=== PATIENT | male | born 1975 | race Hispanic/Latino ===

== ENCOUNTER 2017-08-06 15:20 | Inpatient (IN) | payer SELFPAY ==
[~2017-08-06] VITALS: Ht 170.2 cm; Wt 93.3 kg
[2017-08-06 16:01] LABS: APPEARANCE,URINE Clear (CLEAR); BILIRUBIN,URINE Negative (NEGATIVE); COLOR,URINE Yellow (YELLOW); GLUCOSE, URINE (UA) >=1000 mg/dL (NEGATIVE); KETONES,URINE >=160 mg/dL (NEGATIVE); LEUKOCYTE ESTERASE ,URINE Negative (NEGATIVE); NITRATE,URINE Negative (NEGATIVE); OCCULT BLOOD,URINE Nonhemolyzed Trace (NEGATIVE); PH,URINE 5.5 (5.0-8.0); PROTEIN,URINE Negative (NEGATIVE)
[2017-08-06 16:16] LABS: BASOPHILS % (AUTO) 0.6 % (0.0-5.0); EOSINOPHILS % (AUTO) 0.4 % (0.0-8.0); HEMATOCRIT 41.8 % (42-54); LYMPHOCYTES % (AUTO) 6.9 % (21.0-51.0); MEAN CORPUSCULAR HEMOGLOBIN 29.1 pg (27.0-33.0); MEAN CORPUSCULAR HGB CONC 34.3 g/dL (32.0-36.0); MONOCYTES % (AUTO) 6.3 % (3.0-13.0); NEUTROPHILS % (AUTO) 85.8 % (40.0-77.0); PLATELET COUNT (AUTO) 287 K/uL (130-400); RED BLOOD CELL COUNT(AUTO) 4.92 MIL/uL (4.50-6.20); RED CELL DISTRIBUTION WIDTH 12.4 % (11.0-15.5); WHITE BLOOD COUNT (AUTO) 20.4 K/uL (4.8-10.8)
[2017-08-06 16:25] LABS: CREATININE 0.8 mg/dL (0.5-1.5); POTASSIUM 3.2 mmol/L (3.5-5.1)
[2017-08-06 16:30] LABS: ALBUMIN 2.8 g/dL (3.5-5.0); BILIRUBIN,TOTAL 0.9 mg/dL (0.2-1.0); TOTAL PROTEIN, SERUM 7.7 g/dL (6.0-8.3)
[2017-08-06 17:00] LABS: BACTERIA,URINE Rare /HPF (None Seen); WBC,URINE 0-1 /HPF (0-1)
[2017-08-06 17:01] LABS: SQUAMOUS EPITHELIAL CELL,UR Rare /LPF (0-2); YEAST,URINE BUDDING Rare /HPF (None Seen)
[2017-08-06] MEDS ORDERED: VANCOMYCIN 1GM+NS 250ML 250 ML IV ONE (17:24)
[2017-08-06] MEDS ORDERED: ONDANSETRON HCL 4 MG/2 ML VIAL ONE (17:24)
[2017-08-06] MEDS ORDERED: SODIUM CHLORIDE 0.9% 1000ML 4,000 ML IV ONE (17:24)
[2017-08-06] MEDS ORDERED: INSULIN HUMULIN R 100 UNIT/ML 3ML ONE (17:25)
[2017-08-06] MEDS ORDERED: ACETAMINOPHEN 325 MG TAB ONE ×2 (17:41→23:51)
[2017-08-06] MEDS ORDERED: SODIUM CHLORIDE 0.9% 1000ML 1,000 ML IV ONE (23:50)
[2017-08-06] MEDS ORDERED: ZOSYN 3.375GM+NS 50ML 50 ML IV ONE (23:51)
[2017-08-07] MEDS ORDERED: LACTATED RINGERS 1000ML 1,000 ML IV SCH (03:16)
[2017-08-07] MEDS ORDERED: HYDRALAZINE HCL 20 MG/ML VIAL IV PRN (03:30)
[2017-08-07] MEDS ORDERED: ALPRAZOLAM 0.5 MG TABLET PO PRN (03:30)
[2017-08-07] MEDS ORDERED: ACETAMINOPHEN 325 MG TAB PO PRN (03:30)
[2017-08-07] MEDS ORDERED: ONDANSETRON HCL 4 MG/2 ML VIAL IV PRN (03:30)
[2017-08-07] MEDS ORDERED: ACETAMINOPHEN-CODEINE 300/30MG TAB ONE ×2 (03:50→09:18)
[2017-08-07] MEDS ORDERED: LACTATED RINGERS 1000ML 1,000 ML IV ONE ×2 (04:55→08:31)
[2017-08-07] MEDS ORDERED: ZOSYN 3.375GM+NS 50ML 50 ML IV ONE ×2 (04:55→11:56)
[2017-08-07] MEDS: ZOSYN 3.375GM+NS 50ML 50 ML IV SCH ×3 (05:00→22:01)
[2017-08-07] MEDS ORDERED: ACETAMINOPHEN 325 MG TAB ONE (06:26)
[2017-08-07] MEDS ORDERED: PANTOPRAZOLE SODIUM 40 MG TABLET.DR PO ONE (08:27)
[2017-08-07] MEDS ORDERED: INSULIN HUMULIN R 100 UNIT/ML 3ML ONE ×2 (08:28→11:57)
[2017-08-07] MEDS: PANTOPRAZOLE SODIUM 40 MG TABLET.DR PO SCH (09:00)
[2017-08-07] MEDS ORDERED: COMPOUND IV REFRIGERATED 1 EACH IVSOLN MISC PRN (09:15)
[2017-08-07] MEDS ORDERED: RANI150T7 PO (10:37)
[2017-08-07] MEDS: INSULIN R PO SS2 SQ SCH ×3 (11:30→22:12)
[2017-08-07 14:20] VITALS: BP 142/74
[2017-08-07] MEDS: VANCOMYCIN 1.25 GM in SODIUM CHLORIDE 0.9% 250 ML IV SCH (15:48)
[2017-08-07 16:00] VITALS: BP 148/73
[2017-08-07] MEDS: ACETAMINOPHEN-CODEINE 300/30MG TAB PO PRN (16:06)
[2017-08-07 19:00] VITALS: BP 141/73
[2017-08-07] MEDS: SODIUM CHLORIDE 0.9% 1000ML 1,000 ML IV SCH (22:01)
[2017-08-08] VITALS: BP 147/82
[2017-08-08 04:00] VITALS: BP 150/84
[2017-08-08 04:03] LABS: BASOPHILS % (AUTO) 0.7 % (0.0-5.0); HEMATOCRIT 38.1 % (42-54); LYMPHOCYTES % (AUTO) 10.7 % (21.0-51.0); MEAN CORPUSCULAR HEMOGLOBIN 28.6 pg (27.0-33.0); MEAN CORPUSCULAR HGB CONC 33.8 g/dL (32.0-36.0); MEAN CORPUSCULAR VOLUME 84.7 fL (79-99); MONOCYTES % (AUTO) 9.4 % (3.0-13.0); NEUTROPHILS % (AUTO) 78.2 % (40.0-77.0); PLATELET COUNT (AUTO) 286 K/uL (130-400); RED BLOOD CELL COUNT(AUTO) 4.49 MIL/uL (4.50-6.20); RED CELL DISTRIBUTION WIDTH 12.5 % (11.0-15.5); WHITE BLOOD COUNT (AUTO) 19.1 K/uL (4.8-10.8)
[2017-08-08 04:48] LABS: CREATININE 0.7 mg/dL (0.5-1.5)
[2017-08-08] MEDS: ZOSYN 3.375GM+NS 50ML 50 ML IV SCH ×3 (05:11→21:48)
[2017-08-08 05:51] LABS: HIGH SENSITIVITY CRP 255.36 mg/L (0.0-3.0)
[2017-08-08] MEDS: INSULIN R PO SS2 SQ SCH ×4 (06:27→21:48)
[2017-08-08] MEDS: VANCOMYCIN 1.25 GM in SODIUM CHLORIDE 0.9% 250 ML IV SCH ×2 (06:39→18:07)
[2017-08-08 08:00] VITALS: BP 150/76
[2017-08-08] MEDS: PANTOPRAZOLE SODIUM 40 MG TABLET.DR PO SCH (08:48)
[2017-08-08 11:31] VITALS: BP 154/85
[2017-08-08] MEDS: ACETAMINOPHEN-CODEINE 300/30MG TAB PO PRN ×2 (15:23→22:24)
[2017-08-08 16:00] VITALS: BP 150/24
[2017-08-08] MEDS: LACTULOSE 20 GM/30 ML UDCUP PO PRN (16:41)
[2017-08-08] MEDS: SODIUM CHLORIDE 0.9% 1000ML 1,000 ML IV SCH ×2 (17:23→21:52)
[2017-08-08] MEDS: POTASSIUM CHLORIDE 20 MEQ ERTAB PO PRN ×2 (18:07→22:22)
[2017-08-08 20:05] VITALS: BP 174/89
[2017-08-08] MEDS: LIDOCAINE HCL-MPF 1% 2ML VIAL IVP PRN (22:22)
[2017-08-08] MEDS: POTASSIUM CHLORIDE 20MEQ/100ML 100 ML IV PRN (22:22)
[2017-08-09] VITALS (7 sets, daily range): BP systolic 122–144; BP diastolic 75–82
[2017-08-09] MEDS: POTASSIUM CHLORIDE 20MEQ/100ML 100 ML IV PRN (01:43)
[2017-08-09] MEDS: LIDOCAINE HCL-MPF 1% 2ML VIAL IVP PRN (01:43)
[2017-08-09] MEDS: ZOSYN 3.375GM+NS 50ML 50 ML IV SCH ×3 (05:25→21:42)
[2017-08-09] MEDS: VANCOMYCIN 1.25 GM in SODIUM CHLORIDE 0.9% 250 ML IV SCH (05:53)
[2017-08-09] MEDS: INSULIN R PO SS2 SQ SCH ×3 (06:34→21:26)
[2017-08-09] MEDS: SODIUM CHLORIDE 0.9% 1000ML 1,000 ML IV SCH (10:09)
[2017-08-09] MEDS: PANTOPRAZOLE SODIUM 40 MG TABLET.DR PO SCH (10:10)
[2017-08-09] MEDS: VANCOMYCIN 1.5 GM in SODIUM CHLORIDE 0.9% 250 ML IV SCH ×2 (10:10→21:43)
[2017-08-09] MEDS: ALPRAZOLAM 0.25 MG TABLET PO SCH ×2 (15:01→21:15)
[2017-08-09] MEDS: VENLAFAXINE HCL XR 37.5 MG CAP PO SCH (17:35)
[2017-08-09] MEDS: ACETAMINOPHEN-CODEINE 300/30MG TAB PO PRN (21:15)
[2017-08-10 04:25] VITALS: BP 141/89
[2017-08-10 04:28] LABS: MEAN CORPUSCULAR HEMOGLOBIN 29.7 pg (27.0-33.0); MEAN CORPUSCULAR HGB CONC 35.2 g/dL (32.0-36.0); MEAN CORPUSCULAR VOLUME 84.5 fL (79-99); PLATELET COUNT (AUTO) 306 K/uL (130-400); RED BLOOD CELL COUNT(AUTO) 4.49 MIL/uL (4.50-6.20); RED CELL DISTRIBUTION WIDTH 12.5 % (11.0-15.5)
[2017-08-10 04:38] LABS: CREATININE 0.6 mg/dL (0.5-1.5); POTASSIUM 3.1 mmol/L (3.5-5.1)
[2017-08-10 04:39] LABS: BAND NEUTROPHILS % (MANUAL) 11 % (0-2); EOSINOPHILS % (MANUAL) 3 % (1-6); LYMPHOCYTES % (MANUAL) 11 % (22-44); MAN.DIFF COMMENT-IMPRESSION MANUAL DIFFERENTIAL; MONOCYTES % (MANUAL) 16 % (2-9); PLATELET MORPHOLOGY COMMENT ADEQUATE; SEGMENTED NEUTROPHILS % 59 % (40-70)
[2017-08-10] MEDS: ZOSYN 3.375GM+NS 50ML 50 ML IV SCH ×3 (05:00→21:52)
[2017-08-10] MEDS: SODIUM CHLORIDE 0.9% 1000ML 1,000 ML IV SCH ×3 (06:11→18:06)
[2017-08-10] MEDS: INSULIN R PO SS2 SQ SCH ×4 (06:14→22:07)
[2017-08-10 09:06] VITALS: BP 139/82
[2017-08-10] MEDS: VANCOMYCIN 1.5 GM in SODIUM CHLORIDE 0.9% 250 ML IV SCH (09:53)
[2017-08-10] MEDS: ALPRAZOLAM 0.25 MG TABLET PO SCH ×3 (09:53→21:53)
[2017-08-10] MEDS: PANTOPRAZOLE SODIUM 40 MG TABLET.DR PO SCH (09:53)
[2017-08-10] MEDS: VENLAFAXINE HCL XR 37.5 MG CAP PO SCH (09:53)
[2017-08-10 11:49] VITALS: BP 137/85
[2017-08-10 15:55] VITALS: BP 150/88
[2017-08-10] MEDS: ACETAMINOPHEN-CODEINE 300/30MG TAB PO PRN ×2 (16:56→23:56)
[2017-08-10 21:04] VITALS: BP 136/90
[2017-08-10] MEDS: POTASSIUM CHLORIDE 20 MEQ ERTAB PO PRN ×2 (21:53→23:34)
[2017-08-10] MEDS: VANCOMYCIN 1.75 GM in SODIUM CHLORIDE 0.9% 250 ML IV SCH (21:53)
[2017-08-10] MEDS: LIDOCAINE HCL-MPF 1% 2ML VIAL IVP PRN (23:34)
[2017-08-10] MEDS: POTASSIUM CHLORIDE 20MEQ/100ML 100 ML IV PRN (23:34)
[2017-08-11] VITALS (7 sets, daily range): BP systolic 125–145; BP diastolic 81–90
[2017-08-11] MEDS: LIDOCAINE HCL-MPF 1% 2ML VIAL IVP PRN (02:30)
[2017-08-11] MEDS: POTASSIUM CHLORIDE 20MEQ/100ML 100 ML IV PRN (02:30)
[2017-08-11] MEDS: ZOSYN 3.375GM+NS 50ML 50 ML IV SCH ×3 (05:05→22:08)
[2017-08-11] MEDS: SODIUM CHLORIDE 0.9% 1000ML 1,000 ML IV SCH ×3 (05:06→22:39)
[2017-08-11] MEDS: INSULIN R PO SS2 SQ SCH ×4 (06:37→22:17)
[2017-08-11] MEDS: PANTOPRAZOLE SODIUM 40 MG TABLET.DR PO SCH (10:41)
[2017-08-11] MEDS: VENLAFAXINE HCL XR 37.5 MG CAP PO SCH (10:41)
[2017-08-11] MEDS: VANCOMYCIN 1.75 GM in SODIUM CHLORIDE 0.9% 250 ML IV SCH ×2 (10:41→22:08)
[2017-08-11] MEDS: ALPRAZOLAM 0.25 MG TABLET PO SCH ×3 (10:41→22:08)
[2017-08-11] MEDS: LACTULOSE 20 GM/30 ML UDCUP PO PRN (17:50)
[2017-08-11] MEDS: ACETAMINOPHEN-CODEINE 300/30MG TAB PO PRN (17:50)
[2017-08-11] MEDS: SODIUM HYPOCHLORITE 0.5% [FULL STRENGTH] 473 ML TOPICAL SOLN TP SCH (22:39)
[2017-08-12] MEDS: ACETAMINOPHEN-CODEINE 300/30MG TAB PO PRN ×3 (00:07→22:22)
[2017-08-12 05:05] VITALS: BP 124/78
[2017-08-12] MEDS: ZOSYN 3.375GM+NS 50ML 50 ML IV SCH (05:06)
[2017-08-12 05:33] LABS: HEMATOCRIT 40.1 % (42-54); MEAN CORPUSCULAR HEMOGLOBIN 28.9 pg (27.0-33.0); MEAN CORPUSCULAR HGB CONC 33.8 g/dL (32.0-36.0); MEAN CORPUSCULAR VOLUME 85.7 fL (79-99); PLATELET COUNT (AUTO) 351 K/uL (130-400); RED BLOOD CELL COUNT(AUTO) 4.67 MIL/uL (4.50-6.20); RED CELL DISTRIBUTION WIDTH 12.7 % (11.0-15.5); WHITE BLOOD COUNT (AUTO) 12.3 K/uL (4.8-10.8)
[2017-08-12 05:40] LABS: CREATININE 0.6 mg/dL (0.5-1.5); MAGNESIUM 1.7 mg/dL (1.80-2.40); POTASSIUM 3.4 mmol/L (3.5-5.1)
[2017-08-12 06:13] LABS: EOSINOPHILS % (MANUAL) 3 % (1-6); LYMPHOCYTES % (MANUAL) 10 % (22-44); MONOCYTES % (MANUAL) 10 % (2-9); SEGMENTED NEUTROPHILS % 77 % (40-70)
[2017-08-12 06:14] LABS: MAN.DIFF COMMENT-IMPRESSION MANUAL DIFFERENTIAL
[2017-08-12] MEDS: SODIUM HYPOCHLORITE 0.5% [FULL STRENGTH] 473 ML TOPICAL SOLN TP SCH ×3 (06:16→21:54)
[2017-08-12] MEDS: INSULIN R PO SS2 SQ SCH ×4 (06:20→20:29)
[2017-08-12 07:00] VITALS: BP 125/76
[2017-08-12] MEDS: VANCOMYCIN 1.75 GM in SODIUM CHLORIDE 0.9% 250 ML IV SCH ×2 (09:23→20:17)
[2017-08-12] MEDS: VENLAFAXINE HCL XR 37.5 MG CAP PO SCH (09:24)
[2017-08-12] MEDS: ALPRAZOLAM 0.25 MG TABLET PO SCH ×3 (09:24→20:17)
[2017-08-12] MEDS: PANTOPRAZOLE SODIUM 40 MG TABLET.DR PO SCH (09:24)
[2017-08-12] MEDS: SODIUM CHLORIDE 0.9% 1000ML 1,000 ML IV SCH ×2 (09:34→20:18)
[2017-08-12 11:00] VITALS: BP 140/92
[2017-08-12] MEDS ORDERED: MAGNESIUM 2GM PREMIX 50ML 50 ML IV ONE (11:34)
[2017-08-12] MEDS ORDERED: INSULIN HUMULIN R 100 UNIT/ML 3ML SQ ONE (11:36)
[2017-08-12] MEDS: POTASSIUM CHLORIDE 10% ELIXIR 20 MEQ/15 ML UDCUP PO PRN ×2 (12:17→15:41)
[2017-08-12 15:40] VITALS: BP 132/79
[2017-08-12] MEDS: PIPERACILLIN SODIUM/TAZOBACTAM 3.375 GM VIAL IV SCH ×2 (15:41→20:17)
[2017-08-12 19:59] VITALS: BP 147/87
[2017-08-12 23:53] VITALS: BP 127/81
[2017-08-13] MEDS: PIPERACILLIN SODIUM/TAZOBACTAM 3.375 GM VIAL IV SCH ×4 (02:16→20:08)
[2017-08-13] MEDS: SODIUM CHLORIDE 0.9% 1000ML 1,000 ML IV SCH ×2 (03:46→15:15)
[2017-08-13 04:00] VITALS: BP 130/79
[2017-08-13] MEDS: INSULIN R PO SS2 SQ SCH ×4 (06:35→21:17)
[2017-08-13] MEDS: ACETAMINOPHEN-CODEINE 300/30MG TAB PO PRN ×2 (06:36→22:56)
[2017-08-13] MEDS: SODIUM HYPOCHLORITE 0.5% [FULL STRENGTH] 473 ML TOPICAL SOLN TP SCH ×3 (06:46→22:57)
[2017-08-13 07:00] VITALS: BP 123/84
[2017-08-13 11:00] VITALS: BP 118/67
[2017-08-13] MEDS: VANCOMYCIN 1.75 GM in SODIUM CHLORIDE 0.9% 250 ML IV SCH ×2 (11:28→20:08)
[2017-08-13] MEDS: VENLAFAXINE HCL XR 37.5 MG CAP PO SCH (11:31)
[2017-08-13] MEDS: ALPRAZOLAM 0.25 MG TABLET PO SCH ×3 (11:31→21:14)
[2017-08-13] MEDS: PANTOPRAZOLE SODIUM 40 MG TABLET.DR PO SCH (11:34)
[2017-08-13 15:54] VITALS: BP 127/73
[2017-08-13 19:58] VITALS: BP 132/81
[2017-08-13 23:51] VITALS: BP 140/84
[2017-08-14] MEDS: SODIUM CHLORIDE 0.9% 1000ML 1,000 ML IV SCH ×2 (01:15→10:54)
[2017-08-14] MEDS: PIPERACILLIN SODIUM/TAZOBACTAM 3.375 GM VIAL IV SCH (02:16)
[2017-08-14 04:00] VITALS: BP 136/87
[2017-08-14] MEDS: ACETAMINOPHEN-CODEINE 300/30MG TAB PO PRN (05:50)
[2017-08-14] MEDS: INSULIN R PO SS2 SQ SCH ×3 (06:33→18:17)
[2017-08-14 08:00] VITALS: BP 119/64
[2017-08-14] MEDS ORDERED: PIPERACILLIN SODIUM/TAZOBACTAM 3.375 GM VIAL IV SCH (08:00)
[2017-08-14] MEDS: VENLAFAXINE HCL XR 37.5 MG CAP PO SCH (10:43)
[2017-08-14] MEDS: PANTOPRAZOLE SODIUM 40 MG TABLET.DR PO SCH (10:44)
[2017-08-14] MEDS: ALPRAZOLAM 0.25 MG TABLET PO SCH ×2 (10:44→13:11)
[2017-08-14] MEDS: VANCOMYCIN 1.75 GM in SODIUM CHLORIDE 0.9% 250 ML IV SCH (10:54)
[2017-08-14 11:30] VITALS: BP 119/75
[2017-08-14] MEDS ORDERED: MEROPENEM 1 GM VIAL IVP SCH (14:00)
[2017-08-14 16:24] VITALS: BP 134/83
== END 2017-08-14 20:01 | disposition home or self-care (01) | DRG 603 ==
LOC: EDH 15:20 → EDHIP 15:21 → 3AH 08-07 13:48
PROVIDERS: ADMIT Family Medicine; ATTEND Family Medicine
PROC: 0W900ZZ Drainage of Head, Open Approach (ICD-10-PCS; principal; 2017-08-06)
DX: L02.811 Cutaneous abscess of head [any part, except face] (principal); B95.62 Methicillin resistant Staphylococcus aureus infection as the cause of diseases classified elsewhere; D72.829 Elevated white blood cell count, unspecified; E11.9 Type 2 diabetes mellitus without complications; E66.9 Obesity, unspecified; F41.1 Generalized anxiety disorder; I10 Essential (primary) hypertension; F43.20 Adjustment disorder, unspecified; F60.7 Dependent personality disorder; Z90.49 Acquired absence of other specified parts of digestive tract; Z68.32 Body mass index [BMI] 32.0-32.9, adult; Z83.3 Family history of diabetes mellitus
CPT/HCPCS: 36415; 70450; 80048; 80053; 80202; 81001; 82009; 82948; 83605; 83735; 85025; 85651; 86141; 87040; 87070; 87076; A4218; A6266; J0360; J1815; J2405; J2543; J3370; J3475; J3480; J3490; J7030; J7120

== ENCOUNTER → 2017-08-20 | Outpatient (CLI) | payer SELFPAY ==
[~2017-08-20] MED LIST: HONEY 1 APPL/ML TUBE TP ONE; RANI150T7 PO
[2017-08-20 18:12] VITALS: BP 150/101
== END | disposition home or self-care (01) ==
LOC: WHH 13:30
PROVIDERS: ATTEND Family Medicine
DX: E11.622 Type 2 diabetes mellitus with other skin ulcer (principal); L98.491 Non-pressure chronic ulcer of skin of other sites limited to breakdown of skin; I10 Essential (primary) hypertension; E66.9 Obesity, unspecified; F41.9 Anxiety disorder, unspecified; Z90.49 Acquired absence of other specified parts of digestive tract; Z68.32 Body mass index [BMI] 32.0-32.9, adult
CPT/HCPCS: 11042; 82948; 87070; A4450; G0463

== ENCOUNTER 2017-08-27 16:17 | Emergency (ER) | payer SELFPAY ==
[2017-08-27 17:11] LABS: BASOPHILS % (AUTO) 1.4 % (0.0-5.0); EOSINOPHILS % (AUTO) 2.9 % (0.0-8.0); HEMATOCRIT 44.5 % (42-54); LYMPHOCYTES % (AUTO) 24.2 % (21.0-51.0); MEAN CORPUSCULAR HEMOGLOBIN 29.4 pg (27.0-33.0); MEAN CORPUSCULAR HGB CONC 34.4 g/dL (32.0-36.0); MEAN CORPUSCULAR VOLUME 85.5 fL (79-99); MONOCYTES % (AUTO) 5.5 % (3.0-13.0); PLATELET COUNT (AUTO) 319 K/uL (130-400); RED CELL DISTRIBUTION WIDTH 13.3 % (11.0-15.5); WHITE BLOOD COUNT (AUTO) 13.3 K/uL (4.8-10.8)
[2017-08-27 17:14] LABS: APPEARANCE,URINE Cloudy (CLEAR); BILIRUBIN,URINE Negative (NEGATIVE); COLOR,URINE Yellow (YELLOW); GLUCOSE, URINE (UA) >=1000 mg/dL (NEGATIVE); KETONES,URINE Negative (NEGATIVE); LEUKOCYTE ESTERASE ,URINE Trace (NEGATIVE); NITRATE,URINE Negative (NEGATIVE); OCCULT BLOOD,URINE Negative (NEGATIVE); PROTEIN,URINE Trace (NEGATIVE); UROBILINOGEN,URINE 0.2 mg/dL (0.2-1.0)
[2017-08-27 17:18] LABS: CREATININE 0.9 mg/dL (0.5-1.5); POTASSIUM 3.9 mmol/L (3.5-5.1)
[2017-08-27 17:23] LABS: RBC,URINE None Seen /HPF (0-1); SQUAMOUS EPITHELIAL CELL,UR 30-50 /LPF (0-2)
[2017-08-27 17:23] LABS: ALBUMIN 3.8 g/dL (3.5-5.0); BILIRUBIN,TOTAL 0.7 mg/dL (0.2-1.0); TOTAL PROTEIN, SERUM 8.1 g/dL (6.0-8.3)
[2017-08-27 17:24] LABS: BACTERIA,URINE Few /HPF (None Seen)
[2017-08-27] MEDS ORDERED: LIDOCAINE 2%-EPI 1:200,000 20 ML VIAL IJ ONE (17:24)
== END 2017-08-27 18:04 | disposition home or self-care (01) ==
LOC: EDH 16:17
DX: L02.811 Cutaneous abscess of head [any part, except face] (principal); E11.9 Type 2 diabetes mellitus without complications; Z79.899 Other long term (current) drug therapy; Z90.49 Acquired absence of other specified parts of digestive tract
CPT/HCPCS: 10060; 36415; 80053; 81001; 85025; 99284; J3490

== ENCOUNTER → 2017-08-27 | Outpatient (CLI) | payer SELFPAY ==
[~2017-08-27] MED LIST changes: -HONEY 1 APPL/ML TUBE TP ONE
[2017-08-27 17:38] VITALS: BP 126/90
== END | disposition home or self-care (01) ==
LOC: WHH 13:00
PROVIDERS: ATTEND Family Medicine
DX: S01.00XD Unspecified open wound of scalp, subsequent encounter (principal); E11.9 Type 2 diabetes mellitus without complications; I10 Essential (primary) hypertension; F41.9 Anxiety disorder, unspecified; E66.9 Obesity, unspecified; F41.1 Generalized anxiety disorder; Z90.49 Acquired absence of other specified parts of digestive tract; Z68.32 Body mass index [BMI] 32.0-32.9, adult; X58.XXXD Exposure to other specified factors, subsequent encounter
CPT/HCPCS: G0463

== ENCOUNTER → 2017-08-30 | Outpatient (CLI) | payer SELFPAY ==
[~2017-08-30] MED LIST changes: +HONEY 1 APPL/ML TUBE TP ONE
[2017-08-30 17:52] VITALS: BP 147/98
== END | disposition home or self-care (01) ==
LOC: WHH 14:00
PROVIDERS: ATTEND Family Medicine
DX: S01.00XD Unspecified open wound of scalp, subsequent encounter (principal); I10 Essential (primary) hypertension; F41.1 Generalized anxiety disorder; E66.9 Obesity, unspecified; E11.9 Type 2 diabetes mellitus without complications; F41.9 Anxiety disorder, unspecified; Z90.49 Acquired absence of other specified parts of digestive tract; Z68.32 Body mass index [BMI] 32.0-32.9, adult; X58.XXXD Exposure to other specified factors, subsequent encounter
CPT/HCPCS: 99211; A4450

== ENCOUNTER → 2017-09-03 | Outpatient (CLI) | payer SELFPAY ==
[2017-09-03 17:05] VITALS: BP 160/104
== END | disposition home or self-care (01) ==
LOC: WHH 14:15
PROVIDERS: ATTEND Family Medicine
DX: T81.89XD Other complications of procedures, not elsewhere classified, subsequent encounter (principal); E11.622 Type 2 diabetes mellitus with other skin ulcer; L98.491 Non-pressure chronic ulcer of skin of other sites limited to breakdown of skin; F41.9 Anxiety disorder, unspecified; I10 Essential (primary) hypertension; F41.1 Generalized anxiety disorder; E66.9 Obesity, unspecified; Z68.32 Body mass index [BMI] 32.0-32.9, adult; Y83.8 Other surgical procedures as the cause of abnormal reaction of the patient, or of later complication, without mention of misadventure at the time of the procedure
CPT/HCPCS: 11042; 36415; 85651; 86141

== ENCOUNTER → 2017-09-20 | Outpatient (CLI) | payer SELFPAY ==
[~2017-09-20] MED LIST changes: -HONEY 1 APPL/ML TUBE TP ONE
[2017-09-20 13:30] VITALS: BP 162/99
== END | disposition home or self-care (01) ==
LOC: WHH 13:00
PROVIDERS: ATTEND Family Medicine
DX: T81.89XD Other complications of procedures, not elsewhere classified, subsequent encounter (principal); E11.622 Type 2 diabetes mellitus with other skin ulcer; L98.491 Non-pressure chronic ulcer of skin of other sites limited to breakdown of skin; F41.9 Anxiety disorder, unspecified; I10 Essential (primary) hypertension; F41.1 Generalized anxiety disorder; E66.9 Obesity, unspecified; F60.7 Dependent personality disorder; Z68.32 Body mass index [BMI] 32.0-32.9, adult; Y83.8 Other surgical procedures as the cause of abnormal reaction of the patient, or of later complication, without mention of misadventure at the time of the procedure
CPT/HCPCS: 99214

== ENCOUNTER → 2017-10-04 | Outpatient (CLI) | payer SELFPAY ==
[2017-10-04 13:50] VITALS: BP 159/106
== END | disposition home or self-care (01) ==
LOC: WHH 13:00
PROVIDERS: ATTEND Family Medicine
DX: T81.89XD Other complications of procedures, not elsewhere classified, subsequent encounter (principal); E11.622 Type 2 diabetes mellitus with other skin ulcer; L98.491 Non-pressure chronic ulcer of skin of other sites limited to breakdown of skin; F41.9 Anxiety disorder, unspecified; I10 Essential (primary) hypertension; F41.1 Generalized anxiety disorder; E66.9 Obesity, unspecified; F60.7 Dependent personality disorder; Z68.32 Body mass index [BMI] 32.0-32.9, adult; Y83.8 Other surgical procedures as the cause of abnormal reaction of the patient, or of later complication, without mention of misadventure at the time of the procedure
CPT/HCPCS: 11042; 82948

== ENCOUNTER → 2017-10-18 | Outpatient (CLI) | payer SELFPAY ==
[2017-10-18 15:41] VITALS: BP 159/100
== END | disposition home or self-care (01) ==
LOC: WHH 13:00
PROVIDERS: ATTEND Family Medicine
DX: T81.89XD Other complications of procedures, not elsewhere classified, subsequent encounter (principal); E11.622 Type 2 diabetes mellitus with other skin ulcer; L98.491 Non-pressure chronic ulcer of skin of other sites limited to breakdown of skin; F41.9 Anxiety disorder, unspecified; I10 Essential (primary) hypertension; E66.9 Obesity, unspecified; F41.1 Generalized anxiety disorder; F60.7 Dependent personality disorder; Z68.32 Body mass index [BMI] 32.0-32.9, adult; Y83.8 Other surgical procedures as the cause of abnormal reaction of the patient, or of later complication, without mention of misadventure at the time of the procedure
CPT/HCPCS: 99214

== ENCOUNTER 2017-11-15 13:00 | Outpatient (CLI) | payer SELFPAY ==
[2017-11-15 13:24] VITALS: BP 144/89
== END 2017-11-15 14:52 | disposition home or self-care (01) ==
LOC: WHH 13:00
PROVIDERS: ATTEND Family Medicine
DX: T81.89XD Other complications of procedures, not elsewhere classified, subsequent encounter (principal); E11.622 Type 2 diabetes mellitus with other skin ulcer; L98.491 Non-pressure chronic ulcer of skin of other sites limited to breakdown of skin; F41.9 Anxiety disorder, unspecified; I10 Essential (primary) hypertension; E66.9 Obesity, unspecified; F41.1 Generalized anxiety disorder; F60.7 Dependent personality disorder; Z68.32 Body mass index [BMI] 32.0-32.9, adult; Y83.8 Other surgical procedures as the cause of abnormal reaction of the patient, or of later complication, without mention of misadventure at the time of the procedure
CPT/HCPCS: G0463

== ENCOUNTER 2018-06-30 15:35 | Emergency (ER) | payer SELFPAY ==
[2018-06-30] MEDS ORDERED: OCTYL 2-CYANOACRYLATE 1 EACH TP ONE (16:45)
[2018-06-30] MEDS ORDERED: TETANUS/DIPHTHERIA TOXOID [ADULT] 0.5 ML VIAL IM ONE (16:46)
[2018-06-30] MEDS ORDERED: IBUPROFEN 600 MG TABLET ONE (17:25)
== END 2018-06-30 17:48 | disposition home or self-care (01) ==
LOC: EDH 15:35
DX: S61.214A Laceration without foreign body of right ring finger without damage to nail, initial encounter (principal); E11.9 Type 2 diabetes mellitus without complications; Z72.0 Tobacco use; W45.8XXA Other foreign body or object entering through skin, initial encounter; Y93.89 Activity, other specified; Y92.098 Other place in other non-institutional residence as the place of occurrence of the external cause; Y99.8 Other external cause status
CPT/HCPCS: 12041; 73140; 90471; 90714

== ENCOUNTER 2019-09-14 09:24 | Emergency (ER) | payer SELFPAY ==
[2019-09-14] MEDS ORDERED: DEXAMETHASONE SOD PHOSPHATE 10MG/ML 1ML VIAL ONE (10:11)
== END 2019-09-14 11:12 | disposition home or self-care (01) ==
LOC: EDH 09:24
DX: J20.9 Acute bronchitis, unspecified (principal); E11.9 Type 2 diabetes mellitus without complications
CPT/HCPCS: 71046; 96372; 99283; J1100

== ENCOUNTER 2021-02-26 12:01 | Emergency (ER) | payer OTHER, SELFPAY ==
[~2021-02-26] VITALS: Ht 170.2 cm; Wt 90.3 kg
[2021-02-26 12:07] VITALS: BP 129/84
[2021-02-26] MEDS ORDERED: ALBU6.7H9 IH (17:22)
[2021-02-26] MEDS ORDERED: AZIT250T9 PO (17:22)
[2021-02-26] MEDS ORDERED: PSEU120T62 PO (17:22)
[2021-02-26] MEDS ORDERED: IBUP-2070 PO (17:22)
[2021-02-26] MEDS ORDERED: GUAI-899 PO (17:22)
[2021-02-26] MEDS ORDERED: LIDOCAINE HCL-MPF 1% 2ML VIAL ONE (17:29)
[2021-02-26] MEDS ORDERED: CEFTRIAXONE 500MG VIAL IM SCH (17:30)
[2021-02-26] MEDS ORDERED: KETOROLAC 30MG VIAL (30MG/ML) IM ONE (17:30)
[2021-02-26 17:54] VITALS: BP 129/76
== END 2021-02-26 17:55 | disposition home or self-care (01) ==
LOC: EDH 12:01
DX: J20.9 Acute bronchitis, unspecified (principal); J01.90 Acute sinusitis, unspecified; Z20.822 Contact with and (suspected) exposure to COVID-19; E11.9 Type 2 diabetes mellitus without complications; I10 Essential (primary) hypertension; E78.00 Pure hypercholesterolemia, unspecified; Z79.899 Other long term (current) drug therapy; Z79.1 Long term (current) use of non-steroidal anti-inflammatories (NSAID)
CPT/HCPCS: 87635; 87804 ×2; 87880; 96372 ×2; 99284; C9803; J0696; J1885; J3490

== ENCOUNTER 2021-05-30 10:35 | Emergency (ER) | payer OTHER, SELFPAY ==
[~2021-05-30] VITALS: Ht 170.2 cm; Wt 90.7 kg
[~2021-05-30 10:35] MED LIST changes: +ALBU6.7H9 IH; +AZIT250T9 PO; +GUAI-899 PO; +IBUP-2070 PO; +PSEU120T62 PO
[2021-05-30] MEDS ORDERED: ALBU6.7H9 IH (12:55)
[2021-05-30] MEDS ORDERED: DEXAMETHASONE SOD PHOSPHATE 4 MG/ML 1ML VIAL IM SCH (13:00)
== END 2021-05-30 13:07 | disposition home or self-care (01) ==
LOC: EDH 10:35
DX: J45.909 Unspecified asthma, uncomplicated (principal); E11.9 Type 2 diabetes mellitus without complications; I10 Essential (primary) hypertension; Z79.1 Long term (current) use of non-steroidal anti-inflammatories (NSAID); Z79.52 Long term (current) use of systemic steroids; Z79.899 Other long term (current) drug therapy
CPT/HCPCS: 71045; 87804 ×2; 87880; 96372; 99284; J1100

== ENCOUNTER 2021-12-06 09:25 | Emergency (ER) | payer BC ==
[~2021-12-06] VITALS: Ht 170.2 cm; Wt 86.2 kg
[~2021-12-06 09:25] MED LIST changes: +CEPH500B PO
[2021-12-06 09:26] VITALS: BP 174/92
[2021-12-06 10:04] LABS: APPEARANCE,URINE Cloudy (CLEAR); BILIRUBIN,URINE Negative (NEGATIVE); COLOR,URINE Yellow (YELLOW); GLUCOSE, URINE (UA) >=1000 mg/dL (NEGATIVE); KETONES,URINE Negative (NEGATIVE); LEUKOCYTE ESTERASE ,URINE Small (NEGATIVE); NITRATE,URINE Positive (NEGATIVE); OCCULT BLOOD,URINE Negative (NEGATIVE); PH,URINE 6.5 (5.0-8.0); PROTEIN,URINE Trace mg/dL (NEGATIVE)
[2021-12-06 10:19] LABS: RBC,URINE 0-1 /HPF (0-1)
[2021-12-06 10:20] LABS: BACTERIA,URINE Few /HPF (None Seen); SQUAMOUS EPITHELIAL CELL,UR Rare /HPF (0-2)
[2021-12-06] MEDS ORDERED: CEPH500B PO (10:59)
== END 2021-12-06 11:14 | disposition home or self-care (01) ==
LOC: EDH 09:25
DX: N39.0 Urinary tract infection, site not specified (principal); F41.9 Anxiety disorder, unspecified; F32.A Depression, unspecified; E11.9 Type 2 diabetes mellitus without complications; K21.9 Gastro-esophageal reflux disease without esophagitis; E78.00 Pure hypercholesterolemia, unspecified; I10 Essential (primary) hypertension; Z79.899 Other long term (current) drug therapy; Z90.89 Acquired absence of other organs; Z90.49 Acquired absence of other specified parts of digestive tract; Z98.890 Other specified postprocedural states
CPT/HCPCS: 81001; 87088

== ENCOUNTER 2022-01-30 19:42 | Emergency (ER) | payer BC ==
[~2022-01-30] VITALS: Ht 170.2 cm; Wt 83.9 kg
[2022-01-30 19:53] VITALS: BP 176/102
[2022-01-30 20:16] LABS: APPEARANCE,URINE SL CLOUDY (CLEAR); BILIRUBIN,URINE NEGATIVE (NEGATIVE); COLOR,URINE YELLOW (YELLOW); GLUCOSE, URINE (UA) >=1000 mg/dL (NEGATIVE); KETONES,URINE NEGATIVE (NEGATIVE); LEUKOCYTE ESTERASE ,URINE TRACE (NEGATIVE); NITRATE,URINE POSITIVE (NEGATIVE); OCCULT BLOOD,URINE SMALL (NEGATIVE); PH,URINE 5.5 (5.0-8.0); PROTEIN,URINE TRACE mg/dL (NEGATIVE); UROBILINOGEN,URINE 0.2 mg/dL (0.2-1.0)
[2022-01-30 20:22] LABS: BACTERIA,URINE Few /HPF (None Seen)
[2022-01-30 20:23] LABS: MUCUS,URINE Rare LPF (None Seen); SQUAMOUS EPITHELIAL CELL,UR Few /HPF (0-2); YEAST,URINE BUDDING Rare /HPF (None Seen)
[2022-01-30] MEDS ORDERED: PHENAZOPYRIDINE HCL 200 MG TABLET PO ONE (20:30)
[2022-01-30] MEDS ORDERED: CEFTRIAXONE 1G VIAL IM ONE (20:30)
[2022-01-30] MEDS ORDERED: PHEN-847 PO (20:35)
[2022-01-30] MEDS ORDERED: CEPH500B PO (20:35)
== END 2022-01-30 20:42 | disposition home or self-care (01) ==
LOC: EDH 19:42
DX: N39.0 Urinary tract infection, site not specified (principal); I10 Essential (primary) hypertension; E11.9 Type 2 diabetes mellitus without complications; E78.00 Pure hypercholesterolemia, unspecified; E66.9 Obesity, unspecified; Z79.1 Long term (current) use of non-steroidal anti-inflammatories (NSAID); Z90.49 Acquired absence of other specified parts of digestive tract; Z68.29 Body mass index [BMI] 29.0-29.9, adult
CPT/HCPCS: 81001; 87077; 87088; 87186; 96372; 99284; J0696

== ENCOUNTER 2022-08-04 09:25 | Emergency (ER) | payer BC ==
[~2022-08-04] VITALS: Ht 170.2 cm; Wt 99.8 kg
[~2022-08-04 09:25] MED LIST changes: +ALBU6.7H14 IH; -ALBU6.7H9 IH; +PHEN-847 PO
[2022-08-04 09:30] VITALS: BP 174/82
[2022-08-04] MEDS ORDERED: TETRACAINE HCL 0.5% 4 ML OPHTH SOLN ONE (09:34)
[2022-08-04] MEDS ORDERED: FLUORESCEIN SODIUM 1 STRIP STRIP ONE (09:35)
== END 2022-08-04 11:01 | disposition home or self-care (01) ==
LOC: EDH 09:25
DX: S00.212A Abrasion of left eyelid and periocular area, initial encounter (principal); E11.9 Type 2 diabetes mellitus without complications; E66.9 Obesity, unspecified; E78.00 Pure hypercholesterolemia, unspecified; Z68.34 Body mass index [BMI] 34.0-34.9, adult; I10 Essential (primary) hypertension; Z90.49 Acquired absence of other specified parts of digestive tract; Z90.89 Acquired absence of other organs; Z79.899 Other long term (current) drug therapy; X58.XXXA Exposure to other specified factors, initial encounter; Y93.89 Activity, other specified; Y92.89 Other specified places as the place of occurrence of the external cause; Y99.8 Other external cause status

== ENCOUNTER 2022-08-17 09:30 | Emergency (ER) | payer BC ==
[~2022-08-17] VITALS: Ht 167.6 cm; Wt 95.3 kg
[2022-08-17] MEDS ORDERED: ONDA4TAB10 PO (11:49)
[2022-08-17] MEDS ORDERED: BENZ-39 PO (11:49)
[2022-08-17] MEDS ORDERED: OXYM30SP27 NS (11:49)
[2022-08-17 12:27] VITALS: BP 132/74
== END 2022-08-17 12:05 | disposition home or self-care (01) ==
LOC: EDH 09:30
DX: J06.9 Acute upper respiratory infection, unspecified (principal); B33.8 Other specified viral diseases; E11.9 Type 2 diabetes mellitus without complications; E66.9 Obesity, unspecified; E78.00 Pure hypercholesterolemia, unspecified; F31.9 Bipolar disorder, unspecified; I10 Essential (primary) hypertension; F41.9 Anxiety disorder, unspecified; Z20.822 Contact with and (suspected) exposure to COVID-19; Z79.899 Other long term (current) drug therapy; Z90.49 Acquired absence of other specified parts of digestive tract; Z90.89 Acquired absence of other organs; Z98.890 Other specified postprocedural states
CPT/HCPCS: 99283; 87635; 87804 ×2; C9803

== ENCOUNTER 2023-01-11 12:08 | Emergency (ER) | payer BC ==
[~2023-01-11] VITALS: Ht 170.2 cm; Wt 96.2 kg
[~2023-01-11 12:08] MED LIST changes: +BENZ-39 PO; +ONDA4TAB10 PO; +OXYM30SP27 NS
[2023-01-11] MEDS ORDERED: PREDNISONE 20 MG TABLET PO ONE (13:00)
[2023-01-11 14:38] LABS: APPEARANCE,URINE CLEAR (CLEAR); BILIRUBIN,URINE NEGATIVE (NEGATIVE); COLOR,URINE LIGHT-YELLOW (YELLOW); GLUCOSE, URINE (UA) >=1000 mg/dL (NEGATIVE); KETONES,URINE NEGATIVE (NEGATIVE); LEUKOCYTE ESTERASE ,URINE 75 Leu/uL (NEGATIVE); MUCUS,URINE RARE LPF (None Seen); NITRATE,URINE NEGATIVE (NEGATIVE); OCCULT BLOOD,URINE NEGATIVE (NEGATIVE); PROTEIN,URINE NEGATIVE (NEGATIVE); SQUAMOUS EPITHELIAL CELL,UR RARE /HPF (0-2); UROBILINOGEN,URINE 0.2 mg/dL (0.2-1.0)
[2023-01-11 16:17] VITALS: BP 133/85
== END 2023-01-11 16:26 | disposition home or self-care (01) ==
LOC: EDH 12:08
DX: N39.0 Urinary tract infection, site not specified (principal); J06.9 Acute upper respiratory infection, unspecified; Z20.822 Contact with and (suspected) exposure to COVID-19
CPT/HCPCS: 99283; 71045; 87635; 87077; 87088; 87186; 87804 ×2; 81001; C9803